=== PATIENT | male | born 1985 | race Caucasian/White ===

== ENCOUNTER 2023-05-13 14:44 | Inpatient (IN) | payer OTHER ==
[2023-05-13] MEDS ORDERED: BENZOCAINE/MENTHOL (CHLORASEPTIC ) LOZENGE MM PRN (18:30)
[2023-05-13] MEDS ORDERED: guaiFENesin 600 MG TABLET.ER (FP) PO PRN (18:30)
[2023-05-13] MEDS ORDERED: BISMUTH SUBSALICYLATE 524 MG/30 ML PO PRN (18:30)
[2023-05-13] MEDS ORDERED: DOCUSATE SODIUM 100 MG CAPSULE (FP) PO PRN (18:30)
[2023-05-13] MEDS ORDERED: ACETAMINOPHEN 325 MG TABLET (FP) PO PRN (18:30)
[2023-05-13] MEDS ORDERED: DICYCLOMINE HCL 10 MG CAPSULE PO PRN (18:30)
[2023-05-13] MEDS ORDERED: IBUPROFEN 400 MG TABLET (FP) PO PRN (18:30)
[2023-05-13] MEDS ORDERED: hydrOXYzine PAMOATE 25 MG CAPSULE (FP) PO PRN (18:30)
[2023-05-13] MEDS ORDERED: ONDANSETRON *ODT* 4 MG TABLET SL PRN (18:30)
[2023-05-13] MEDS ORDERED: LOPERAMIDE HCL 2 MG CAPSULE PO PRN (18:30)
[2023-05-13] MEDS ORDERED: BENZONATATE 200 MG CAPSULE PO PRN (18:30)
[2023-05-13] MEDS ORDERED: MAGNESIUM HYDROX 2400MG/30ML ORAL SUSPENSION 30 ML CUP PO PRN (18:30)
[2023-05-13] MEDS ORDERED: NALOXONE HCL (KLOXXADO) 8 MG SPRAY NS PRN (18:30)
[2023-05-13] MEDS ORDERED: POLYETHYLENE GLYCOL (HEALTHYLAX) 3350 17 GM PACKET PO PRN (18:30)
[2023-05-13] MEDS ORDERED: NALOXONE HCL 0.4 MG/ML VIAL IM PRN (18:30)
[2023-05-13] MEDS ORDERED: P-EPHED 60MG/TRIPROLIDI 2.5MG TABLET PO PRN (18:30)
[2023-05-13] MEDS ORDERED: levETIRAcetam 500 MG TABLET (FP) PO ONE (19:31)
[2023-05-13] MEDS ORDERED: ONDANSETRON *ODT* 4 MG TABLET ONE (19:31)
[2023-05-13] MEDS ORDERED: diazePAM 5 MG TABLET ONE (19:31)
[2023-05-13] MEDS: diazePAM 5 MG TABLET PO PRN (19:35)
[2023-05-13] MEDS: ONDANSETRON *ODT* 4 MG TABLET SL PRN (19:36)
[2023-05-13] MEDS: levETIRAcetam 500 MG TABLET (FP) PO SCH (19:36)
[2023-05-13] MEDS: methaDONE HCL 10 MG TABLET (FOR DETOX USE ONLY) PO ONE (20:19)
[2023-05-13] MEDS: MELATONIN 5 MG TABLETS PO SCH (22:09)
[2023-05-13] MEDS: METHOCARBAMOL 500 MG TABLET PO PRN (22:09)
[2023-05-13] MEDS: THIAMINE HCL 100 MG TABLET (FP) PO SCH (22:09)
[2023-05-13] MEDS: diazePAM 5 MG TABLET PO SCH (22:10)
[2023-05-13] MEDS: cloNIDine HCL 0.1 MG TABLET PO PRN (22:10)
[2023-05-13] MEDS ORDERED: diazePAM 5 MG TABLET PO SCH (23:00)
[2023-05-14] MEDS: MAG HYDROX/AL HYDROX/SIMETH 30 ML UNIT-DOSE CUP PO PRN (03:10)
[2023-05-14] MEDS: PRENATAL VITAMINS W/ FOLIC ACID TABLET (FP) PO SCH (10:33)
[2023-05-14 11:24] LABS: HEMATOCRIT 33.5 % (35.4-49); MCH 27.8 pg (25.7-33.7); MCHC 32.9 g/dl (32.0-35.9); MEAN CELL VOLUME 84.6 fl (80-96); MEAN PLT VOLUME 8.2 fl (7.5-11.1); PLATELET COUNT 188 10^3/uL (134-434); RBC 3.96 M/mm3 (4.00-5.60); RDW 14.7 % (11.9-15.9); WHITE BLOOD COUNT 3.8 K/mm3 (4.0-10.0)
[2023-05-14 12:00] LABS: POTASSIUM 3.7 mmol/L (3.5-5.1)
[2023-05-14 12:03] LABS: ALBUMIN 3.7 g/dl (3.4-5.0); BLOOD UREA NITROGEN 9.8 mg/dL (7-18)
[2023-05-14 12:06] LABS: CREATININE 0.7 mg/dL (0.55-1.3)
[2023-05-14 12:07] LABS: TOT PROT 6.1 g/dl (6.4-8.2)
[2023-05-14 12:08] LABS: BILIRUBIN,TOTAL 0.8 mg/dL (0.2-1)
[2023-05-14] MEDS: BISACODYL 10 MG SUPP.RECT PR ONE (13:40)
[2023-05-15] MEDS: diazePAM 5 MG TABLET PO SCH (05:18)
[2023-05-15] MEDS: diazePAM 5 MG TABLET PO ONE (08:36)
[2023-05-15] MEDS: methaDONE HCL 10 MG TABLET (FOR DETOX USE ONLY) PO ONE (10:08)
[2023-05-15] MEDS: BISACODYL 10 MG SUPP.RECT PR ONE (15:43)
[2023-05-15] MEDS: hydrOXYzine PAMOATE 25 MG CAPSULE (FP) PO ONE (17:59)
[2023-05-15] MEDS: hydrOXYzine PAMOATE 50 MG CAPSULE (FP) PO ONE (23:36)
[2023-05-16] MEDS: IBUPROFEN 600 MG TABLET (FP) PO PRN (02:11)
[2023-05-16] MEDS: diazePAM 5 MG TABLET PO SCH (06:06)
[2023-05-16 06:30] VITALS: RESP 16
[2023-05-16 09:50] VITALS: BP 132/94; PULSE 98; TEMP 98
[2023-05-17] MEDS ORDERED: diazePAM 5 MG TABLET PO ONE (06:00)
[2023-05-17] MEDS ORDERED: methaDONE HCL 10 MG TABLET (FOR DETOX USE ONLY) PO ONE (10:00)
== END 2023-05-16 11:26 | disposition home or self-care (01) | DRG 773 ==
LOC: YASAS 14:44 → Y6N 18:40
PROVIDERS: ADMIT Allergy & Immunology; ATTEND Surgery
PROC: HZ2ZZZZ Detoxification Services for Substance Abuse Treatment (ICD-10-PCS; principal; 2023-05-13)
DX: F11.23 Opioid dependence with withdrawal (principal); F10.20 Alcohol dependence, uncomplicated; F13.20 Sedative, hypnotic or anxiolytic dependence, uncomplicated; F19.24 Other psychoactive substance dependence with psychoactive substance-induced mood disorder; F41.9 Anxiety disorder, unspecified; Z86.59 Personal history of other mental and behavioral disorders
CPT/HCPCS: 0241U-QW; 36415; 80053; 80305; 85027; 86780; 87811; 93005; 93010; Q0162